=== PATIENT | female | born 1955 | race Caucasian/White ===

== ENCOUNTER 2016-07-08 10:52 | Day surgery (SDC) | payer MEDICAID ==
[2016-07-08] MEDS ORDERED: LIDOCAINE 1% 5 ML SDV ONE (11:56)
[2016-07-08] MEDS ORDERED: LIDOCAINE 1% 5 ML SDV ID PRN (12:19)
[2016-07-08] MEDS ORDERED: LR 1,000 ML IV ONE (12:19)
--- NOTE | 2016-07-08 12:35 | GHP ---
[f rep st] PREOP HISTORY AND PHYSICAL DATE OF ADMISSION: 07/08/2016 PREOPERATIVE DIAGNOSIS: Postmenopausal bleeding. HISTORY OF PRESENT ILLNESS: The patient is a 61-year-old, 0 who began having vaginal bleedin g in March of 2016. She has had persistent vaginal bleeding since that time, which ebbs and flows. She had pelvic ultrasound performed in May of 2016 which showed a uterus measuring 6 x 3.1 x 4 cm with no evidence of a myometrial mass. The endometrial stripe is thickened at 13 mm with a heter ogeneous appearance and blood flow. Right ovary is normal in appearance. The left ovary has a 1.8 s imple appearing cyst on it. The patient had an attempted endometrial biopsy performed in the office, but due to the menopausal multiparous status and a flat stenotic cervix, we were not able to do it a t that time. She was treated with Cytotec and a 2nd attempt was made, but we were not able to access the cervix. The patient was treated with additional courses of Cytotec and presents today for hyste roscopy with morcellation of endometrial tissue and endometrial biopsy. Risks and benefits of the pr ocedure have been extensively reviewed with the patient, and patient has been properly consented. MEDICAL HISTORY: Anxiety, B12 deficiency, depression, hyperlipidemia, hypertension, obesity, vitamin D insufficiency, postmenopausal bleeding. MEDICATIONS: Baby aspirin, vitamin B12, fluoxetine 20 mg a day, Losartan 25 mg a day, Omacor, simvas tatin, vitamin B, vitamin D. ALLERGIES: Tetracycline. SOCIAL HISTORY: The patient denies tobacco, alcohol or drug use. FAMILY MEDICAL HISTORY: Significant for diabetes, heart disease, and hypertension. ORDNANCE TRUCK INSTALLATION SUPERVISOR HISTORY: She has a history of regular cycles. She is a 0. Menopausal x13 years. No episodes of vaginal bleeding until March of 2016. The patient denies any history of any abnormal Pap smears or sexually transmitted diseases. PHYSICAL EXAM: VITAL SIGNS: Stable. GENERAL APPEARANCE: Alert and oriented x3. HEART: Rate is r egular, regular. LUNGS: Clear to auscultation bilaterally. ABDOMEN: Obese, soft, nondistended, no ntender. EXTREMITIES: Reveal no calf tenderness or edema. PELVIC: Reveals a mobile, small mid pos ition uterus with no adnexal masses. A very flat cervix is noted, and it is noted to be stenotic. P elvic ultrasound is described above. ASSESSMENT AND PLAN: A 61-year-old, 0 with postmenopausal bleeding and a thickened endometri um. We were not able to perform an endometrial biopsy in the office, so we will attempt an endometri al biopsy versus hysteroscopy under anesthesia today. Risks and benefits extensively have been revie wed with the patient, and the patient is properly consented. /[id number]/MODL
[2016-07-08] MEDS ORDERED: MIDAZOLAM 2 MG/2 ML VIAL ONE (13:32)
[2016-07-08] MEDS ORDERED: fentaNYL 100 MCG/2 ML INJ ONE ×3 (13:34→14:35)
[2016-07-08] MEDS ORDERED: PROPOFOL 200 MG/20 ML VIAL ONE ×2 (13:35→14:33)
[2016-07-08] MEDS ORDERED: DEXAMETHASONE 4 MG/ML VIAL ONE (13:50)
[2016-07-08] MEDS ORDERED: ONDANSETRON 4 MG/2 ML VIAL ONE (13:50)
--- NOTE | 2016-07-08 18:40 | GOP ---
[f rep st] OPERATIVE REPORT DATE OF OPERATION: 07/08/2016 SURGEON: Shira Shultz DO ANESTHESIA: General. ANESTHESIOLOGIST: Dr. Davis. PREOPERATIVE DIAGNOSIS: Postmenopausal bleeding. POSTOPERATIVE DIAGNOSIS: Postmenopausal bleeding. PROCEDURE PERFORMED: Endometrial biopsy under anesthesia and hysteroscopy with morcellation of endom etrial tissue. FINDINGS: 1. Mobile, very well suspended uterus with a very flat cervix. 2. Hysteroscopic findings: Questionable false passage versus thickened endometrial tissue. SPECIMENS: Endometrial curettings. ESTIMATED BLOOD LOSS: 20 cc. INDICATIONS: Patient is a 61-year-old, 0 who began having postmenopausal bleeding in March of 2016. She underwent an ultrasound in May of 2016 which showed a 13 mm stripe. She underwen t 2 attempted endometrial biopsies within the office which were unsuccessful. She did try Cytotec be fore the second one. She has taken 2 additional courses of Cytotec, and is being brought back to the operating room for endometrial biopsy and hysteroscopy if possible. Risks and benefits of the proce dure were reviewed with the patient and the patient was properly consented. DESCRIPTION OF PROCEDURE: Patient was taken to the operating room with intravenous fluids in place. She was then placed on the operating room table in the dorsal supine position where general anesthes ia was obtained. She was then repositioned into the dorsal lithotomy position with the Yellofin stir rups, and prepped and draped in the normal sterile fashion. Exam under anesthesia reveals a well aramis pended, very small uterus with a flat cervix. A speculum was then placed in the patient's vagina, an d a single-tooth tenaculum was used to grasp the anterior lip of the cervix. The cervical os was jennifer ntified and initial attempt was made with a Pipelle to perform an endometrial biopsy. Bright red blo od was noted with this, and this was set aside and the specimen labeled endometrial biopsy. The cerv ix was then carefully dilated to allow for the introduction of an operative hysteroscope. The hyster oscope was introduced with fluid medium running and a question of false channel versus thickened endo metrium was noted because I was unable to visualize the tubal ostia. Multiple attempts were made wit h ultrasound transvaginally and transabdominally to visualize and ensure that I was inside the endome trial canal. However, due to the small postmenopausal uterus and the patient's body habitus, it was incredibly difficult to see. During the surgery, I was called upstairs for a few minutes for an lorena gency in labor and delivery, and then did return. I did have 1 of my partners, Joanie Mcintyre assist m e with ultrasound following that, and we spent an extensive amount of time trying to identify and vis ualize the uterus and the endometrium. It appeared that we were in the endometrial canal, so once th e hysteroscope was then reintroduced, morcellation was performed of the possible endometrial tissue. This was sent in a separate container. Then, the biopsy performed with the Pipelle. Following comp letion of this, instruments were removed from the patient's vagina. She was returned to the dorsal s upine position, where she was easily awoken from anesthesia. Sponge, lap, needle counts were correct x2. Patient was transported to recovery room in stable condition. I did have a long discussion abo ut the surgical findings and difficulty finding the cervical os with the patient. We discussed if th e endometrium is not sampled, will either recommend hysterectomy or followup with gynecologic oncolog y for further evaluation. /[id number]/MODL
== END 2016-07-08 16:58 | disposition home or self-care (01) ==
LOC: FSGY 10:52
PROVIDERS: ATTEND Obstetrics & Gynecology
PROC: 0UB98ZX Excision of Uterus, Via Natural or Artificial Opening Endoscopic, Diagnostic (ICD-10-PCS; principal; 2016-07-08 12:45)
DX: N95.0 Postmenopausal bleeding (principal); R93.8 Abnormal findings on diagnostic imaging of other specified body structures; F41.9 Anxiety disorder, unspecified; E11.9 Type 2 diabetes mellitus without complications; E78.5 Hyperlipidemia, unspecified; E66.9 Obesity, unspecified
CPT/HCPCS: C1782; J1100; J2250; J2405; J2704; J3010

== ENCOUNTER 2016-08-02 06:42 | Observation (INO) | payer MEDICAID ==
[2016-07-27 09:30] LABS: % IMMATURE GRANULYOCYTES 0.2 % (0.0-1.1); ABSOLUTE IMMATURE GRANULOCYTES 0.01 10^3/uL (0.00-0.10); ADD DIFF? NO; ADD MORPH? NO; ADD SCAN? NO; ATYPICAL LYMPHOCYTE FLAG 10 (0-99); FRAGMENT RBC FLAG 0 (0-99); HEMATOCRIT 42.6 % (38.0-47.0); HEMOGLOBIN 14.1 g/dL (12.6-16.3); LEFT SHIFT FLG 0 (0-99); LIPEMIA HEMOLYSIS FLAG 80 (0-99); MEAN CELL HEMOGLOBIN 30.4 pg (27.9-34.1); MEAN CELL HEMOGLOBIN CONCENTR. 33.1 g/dL (32.4-36.7); MEAN CELL VOLUME 91.8 fL (81.5-99.8); MEAN PLATELET VOLUME 9.3 fL (8.7-11.7); PLATELET CLUMPS FLAG 0 (0-99); PLATELET COUNT 282 10^3/uL (150-400); RED BLOOD CELL COUNT 4.64 10^6/uL (4.18-5.33); RED CELL DISTRIBUTION WIDTH 14.3 % (11.5-15.2)
--- NOTE | 2016-08-01 18:01 | GHP ---
[f rep st] PREOP HISTORY AND PHYSICAL DATE OF ADMISSION: 08/02/2016 PLANNED PROCEDURE: 08/02/2016. Planned procedure is total laparoscopic hysterectomy with bilateral salpingectomy. INDICATIONS: Patient is a 61-year-old, 0, who began having vaginal bleeding in March. She has had persistent vaginal bleeding since that time, which increases and decreases. She i s not on any hormone replacement, and has never been on. The patient had a pelvic ultrasound perfor med in May of 2016, which showed the uterus measuring 6 x 3.1 x 4 cm, with no evidence of a kyree metrial mass. The endometrial stripe was thickened at 13 mm, with a heterogeneous appearance and bl ood flow. She had a simple cyst on her left ovary, and an unremarkable right ovary. We attempted a n endometrial biopsy in the office, but due to her menopausal and nulliparous status, and a flat giselle notic cervix, we were not able to do it at that time. She underwent a hysteroscopy with morcellatio n of endometrial tissue in June of 2016, which showed benign endometrial tissue. The patient has had persistent vaginal bleeding since that time. She was given Aygestin, which did decrease her bl eeding temporarily, but it has resumed. We have had a long discussion about management options, and the patient is electing to proceed with a total laparoscopic hysterectomy with bilateral salpingect stan. We have had extensive discussions about the possibility of uterine cancer being present, despi te a normal biopsy. The patient is agreeable with plan, and wishes to proceed. Risks and benefits of the procedure have been extensively reviewed with the patient, and the patient has been properly consented. MEDICAL HISTORY: Anxiety, B12 deficiency, depression, hyperlipidemia, hypertension, obesity, vitami n D deficiency, postmenopausal bleeding. MEDICATIONS: Baby aspirin, vitamin B12, fluoxetine 20 mg a day, losartan 25 mg a day, Omacor, simva statin, vitamin B and vitamin D. ALLERGIES: Tetracycline causes a rash. SOCIAL HISTORY: Patient denies tobacco, alcohol, or drug use. She is . FAMILY MEDICAL HISTORY: Diabetes, heart disease, and hypertension. OBSTETRICAL/GYNECOLOGIC HISTORY: She had regular cycles until menopause. She is a 0. She has been menopausal for 13 years. She has not had any episodes of vaginal bleeding until March of 2016. She has not been on any hormone replacement. She denies any history of any abnormal Pap sme ars or sexually transmitted diseases. PHYSICAL EXAM: VITAL SIGNS: Stable. GENERAL APPEARANCE: Alert and oriented x3. CARDIOVASCULAR: Her heart rate is regular, regular. LUNGS: Clear to auscultation bilaterally. ABDOMEN: Obese, s oft, nondistended, nontender. EXTREMITIES: Reveal no calf tenderness or edema. PELVIC: Reveals a mobile, small, midposition uterus, with no adnexal masses, and a very flat cervix is noted that was stenotic. IMAGING: Pelvic ultrasound is described above. ASSESSMENT AND PLAN: A 61-year-old, 0, who is postmenopausal, with persistent postmenopausa l bleeding and thickened endometrium. She will undergo a total laparoscopic hysterectomy with bilat eral salpingectomy. Risks and benefits have been extensively reviewed with the patient, and the pat ient has been properly consented. /[id number]/MODL
[~2016-08-02 06:42] MED LIST: ceFAZolin 2 GM/DEXTROSE 100 ML IV ONE
[2016-08-02] MEDS ORDERED: LIDOCAINE 1% 5 ML SDV ONE (07:22)
[2016-08-02] MEDS ORDERED: fentaNYL 100 MCG/2 ML INJ ONE ×3 (07:42→11:55)
[2016-08-02] MEDS ORDERED: PROPOFOL 200 MG/20 ML VIAL ONE ×2 (07:43)
[2016-08-02] MEDS ORDERED: LIDOCAINE 2% 100 MG/5 ML SYR IVP ONE (07:46)
[2016-08-02] MEDS ORDERED: ROCURONIUM 50 MG/5 ML VIAL ONE ×2 (07:46→08:44)
[2016-08-02] MEDS ORDERED: DEXAMETHASONE 4 MG/ML VIAL ONE (07:48)
[2016-08-02] MEDS ORDERED: ONDANSETRON 4 MG/2 ML VIAL ONE (07:48)
[2016-08-02] MEDS ORDERED: MIDAZOLAM 2 MG/2 ML VIAL ONE (08:03)
[2016-08-02] MEDS ORDERED: BUPIVACAINE 0.5% 30 ML SDV ONE (08:38)
[2016-08-02] MEDS ORDERED: SUGAMMADEX SODIUM 200 MG/2 ML VIAL IVP ONE (09:04)
[2016-08-02] MEDS ORDERED: METHYLENE BLUE 0.5% 50 MG/10 ML AMP ONE (10:28)
[2016-08-02] MEDS ORDERED: KETOROLAC 15 MG/1 ML SDV IVP ONE (12:05)
[2016-08-02] MEDS ORDERED: KETOROLAC 15 MG/1 ML SDV ONE (12:06)
[2016-08-02] MEDS ORDERED: HYDROmorphONE/DILAUDID 1 MG/ML SYR ONE (12:33)
[2016-08-02] MEDS: HYDROCODONE/APAP 5/325 TAB PO PRN ×3 (16:51→23:39)
[2016-08-02] MEDS ORDERED: ATORVASTATIN CALCIUM 10 MG TAB PO SCH (21:00)
[2016-08-02] MEDS ORDERED: NON-FORMULARY NEW DRUG (Simvastatin [Zocor] 20 MG) PO SCH (21:00)
[2016-08-03] MEDS: HYDROCODONE/APAP 5/325 TAB PO PRN ×3 (04:37→12:16)
[2016-08-03 06:53] LABS: HEMATOCRIT 34.6 % (38.0-47.0); HEMOGLOBIN 11.6 g/dL (12.6-16.3)
[2016-08-03 07:53] VITALS: BP 131/76; PULSE 75; RESP 14; TEMP 99.1; O2SAT 99
--- NOTE | 2016-08-03 08:25 | POSTOPPROG ---
Post Op Note Date of Operation: 08/02/16 Surgeon: Shira Shultz Basketball Commentator: jillian oseguera Anesthesiologist: catie wnog Anesthesia: GET(General Endotracheal) Pre-op Diagnosis: post menopausal bleeding Post-op Diagnosis: post menopausal bleeding Procedure: total laparoscopic hysterectomy with bilateral salpingoophrectomy Inf/Abcess present in the surg proc area at time of surgery?: No Depth: Organ Space EBL: 50-100 Specimen(s): uterus, bilateral ovaries and tubes
--- NOTE | 2016-08-03 08:31 | SOAPPROG ---
SOAP Progress Note Assessment/Plan: Assessment: pod# 1 s/p TLH BSO for post menopausal bleeding uncomplicated post operative course Plan: discharge instructions damien santoyo 08/03/16 08:25 Subjective: patient is doing well. pain is well controlled. tolerating diet. ambulating. passing gas. parra just removed. hasnt voided yet. ambulating. ready to go home. Objective: Vital Signs Temp Pulse Resp BP Pulse Ox 37.3 C 75 14 131/76 H 99 08/03/16 07:51 08/03/16 07:51 08/03/16 07:51 08/03/16 08:00 08/03/16 07:51 Laboratory Results 08/03/16 05:55 08/02/16 08/03/16 08/04/16 05:59 05:59 05:59 Intake Total 2660 Output Total 1445 Balance 1215 Physical Exam - Physical Exam General Appearance: WD/WN, alert, no apparent distress Respiratory: chest non-tender, lungs clear, normal breath sounds Cardiac/Chest: normal peripheral pulses, regular rate, rhythm Abdomen: normal bowel sounds, non-tender, soft, other (incisions well healed) Skin: normal color, warm/dry Extremities: normal range of motion, non-tender, normal inspection, normal capillary refill Neuro/Psych: no motor/sensory deficits, alert, normal mood/affect, oriented x 3 ICD10 Worksheet Patient Problems: Problems Problem Status Onset Post-menopausal bleeding Acute
[2016-08-03] MEDS ORDERED: FLUoxetine 20 MG CAP PO SCH (09:00)
[2016-08-03] MEDS ORDERED: LOSARTAN POTASSIUM 25 MG TAB PO SCH (09:00)
[2016-08-03] MEDS ORDERED: IBUPROFEN 600 MG TAB PO SCH (12:01)
--- NOTE | 2016-08-03 18:13 | GDS ---
ADMISSION DIAGNOSIS: Postmenopausal bleeding. DISCHARGE DIAGNOSIS: Postmenopausal bleeding, resolved, status post total laparoscopic hysterectomy with bilateral salpingo-oophorectomy. HOSPITAL COURSE: The patient is a 61-year-old, 0, who had several-month history of postmeno pausal bleeding. She had an endometrial biopsy, which was benign, and management options were revie wed with the patient. The patient elected to proceed with a total laparoscopic hysterectomy with bi lateral salpingo-oophorectomy. Patient underwent that surgery on 08/02. Surgery was uncomplicated, and the patient had an unremarkable postoperative course. Her Dhillon catheter came out on the morni ng of 08/03. Her pain was well controlled with oral pain medicine, and the patient was discharged t o home on postoperative day #1, with a prescription for Joppa. Patient has ibuprofen at home that s he will take as needed as well. The patient was instructed to have nothing in the vagina for the ne xt [address] for the next week. Patient does have a family history of blood clots, s o she will wear compression stockings for the next couple weeks, including on her flight to [facility] several weeks. Bleeding precautions were reviewed with the patient. Patient is to follow up in o ur office in 2 weeks and in 6 weeks for postoperative visits. /[id number]/MODL
--- NOTE | 2016-08-03 18:53 | GOP ---
DATE OF OPERATION: 08/02/2016 SURGEON: Shira Shultz DO MOBILE TESTER: Ivory Rodríguez MD ANESTHESIA: General endotracheal tube. ANESTHESIOLOGIST: Andrew Orellana MD. PREOPERATIVE DIAGNOSIS: Postmenopausal bleeding. POSTOPERATIVE DIAGNOSIS: Postmenopausal bleeding. PROCEDURE PERFORMED: Total laparoscopic hysterectomy with bilateral salpingo- oophorectomy. FINDINGS: 1. Mobile, well suspended small uterus with flat cervix. No adnexal masses. 2. Laparoscopic findings: Diverticulosis noted on the bowel with adhesions on the right colon to the right pelvic sidewall. Adhesions are small. Mobile uterus with not well-developed lower uterine segment. Normal right ovary and tube. The left paratubal cyst and adhesion of the left ovary to the lower pelvic side wall. SPECIMENS: Ovaries, uterus, and tubes. ESTIMATED BLOOD LOSS: 50 mL. INDICATIONS: The patient is a 61-year-old 0 who began having vaginal bleeding in March of 2016. She has had persistent vaginal bleeding since that time, which increases and decreases. The patient has never been on any hormone replacement. She had a pelvic ultrasound performed in May of 2016 which showed a uterus measuring 6 x 3.1 x 6 cm with no evidence of a myometrial mass. The endometrial stripe was thickened at 13 mm with homogeneous appearance. The patient had a simple cyst on her left ovary and an unremarkable right ovary. We attempted an endometrial biopsy in the office but due to her menopausal nulliparous status and a flat stenotic cervix, we were not able to do it at that time. She underwent a hysteroscopy with morcellation of endometrial tissue in June of 2015 which showed benign endometrial tissue. The patient has had persistent vaginal bleeding. At that time, she was given Aygestin which temporarily decreased her bleeding but has returned. We had a long discussion about management options and the patient elected to proceed with a total laparoscopic hysterectomy and bilateral salpingo- oophorectomy. Risks and benefits of the procedure were reviewed extensively with the patient and the patient was properly consented. DESCRIPTION OF PROCEDURE: Patient was taken to the operating room with intravenous fluids in place. She was given 2 g of Ancef intravenously. She was then placed on the operating room table in the dorsal supine position where general anesthesia was obtained. She was then repositioned into the dorsal lithotomy position with the Yellofin stirrups and prepped and draped in normal sterile fashion. Exam under anesthesia revealed a tight stenotic postmenopausal introitus with a tight hymenal ring because of her nulliparous status and a flat, well-suspended cervix and mobile uterus. Because of the well -suspended nature of the cervix and a history of a stenotic cervix, decision was made to proceed abdominally first to ensure no immediately recognized perforation of the uterus if that happened. The patient laid flat and a 5 mm skin incision was made in the patient's abdomen after injection with Marcaine and a 5 mm laparoscope was then placed into the patient's abdomen under direct visualization. The abdomen was then insufflated with CO2 gas until an adequate pneumoperitoneum was achieved. The area underneath the trocar insertion site was explored and found to be unremarkable. Some abdominal adhesions were noted and the colon was noted to have diverticulosis. A 5 mm skin incision was then placed in the patient's right lower quadrant and a 5 mm trocar was then advanced into the patient's abdomen under direct visual visualization. A 10 mm incision was then made in the patient's left lower quadrant and the trocar was advanced into the patient' s abdomen under direct visualization. The bowel was then mobilized with a blunt probe and the uterus was elevated up with a blunt probe. It was noted to be small and mobile. A speculum was then placed in the patient's vagina. Her introitus was noted to be postmenopausal with a tight hymenal ring. The cervix was noted to be flat and the os deviated off to the patient's side. A single- tooth tenaculum was used to grasp the anterior lip of the cervix and the uterus sounded to 6 cm. The GOOD was assembled with the small yellow uterine manipulator tip and the small GOOD cervical cup. The GOOD was then introduced through the cervix and the balloon was inflated and the uterus was able to be manipulated without difficulty. Attention was then turned again to the patient's abdomen. The right ureter was noted to be peristalsing. The left ureter was not able to be visualized because of the colon. The right fallopian tube was then grasped and tented up and the right infundibulopelvic ligament was then clamped, cauterized, and transected with the Harmonic scalpel. A right salpingectomy and oophorectomy was performed without difficulty. This specimen was then placed posterior to the uterus in the posterior cul-de-sac. The right round ligament was clamped, cauterized, and transected. The broad ligament was clamped, cauterized, and transected. The bladder flap was created anteriorly and the uterine arteries were skeletonized, clamped, cauterized, and transected with the Harmonic scalpel. Attention was then turned to the left side. Because the left fallopian tube and ovary were attached to the left pelvic sidewall, a decision was made to clamp, cauterize, and transect the fallopian tube and round ligaments and then the broad ligament with the Harmonic scalpel. The uterine arteries were then skeletonized and a bladder flap was created anteriorly. Bladder was dissected off the lower uterine segment and the colpotomy ring was easily palpated through the tissue. A colpotomy was performed with the Harmonic scalpel without difficulty and the uterus was then removed through the vagina and left in the vagina to work as a pneumo-occluder. Attention was then turned to the left fallopian tube which was then grasped and tented up and dissected from the infundibulopelvic ligament and the left ovary was dissected off the pelvic sidewall and the vaginal cuff. These 2 specimens and the ovary and tube from the posterior cul-de-sac were replaced in the vagina and then were grasped and a sponge and a glove was placed in the patient's vagina. Hemostasis was assured on all the pedicles. The vaginal cuff remained hemostatic. A V-Loc barbed suture was then inserted through the 10 mm trocar and the vaginal cuff was closed in a running fashion with the V-Loc suture. When we got to the midpoint of the vaginal cuff, the needle for the V-Loc suture broke in half and the remaining piece of the suture was visualized and grasped and withdrawn through the trocar. A 2nd needle was loaded and we closed the vaginal cuff from the other side. When we got to the midportion of the uterus, the needle for the V-Loc suture broke again with half of the suture being left in the handpiece and the other half in the vaginal cuff. We copiously irrigated the vaginal cuff, explored the vaginal cuff vaginally to see if there was any way to identify the needle. We extensively explored the vaginal cuff. Decision was made, because it was a 2 mm piece of needle that was deeply embedded within the vaginal cuff, the risks of complications of opening up the suture line and excising more of the vaginal cuff with hopes of finding the needle outweigh the risks of performing that versus the benefits of leaving the needle imbedded in the vaginal cuff were greater. Decision was made to leave the vaginal cuff is intact. Vaginal cuff was well approximated with the V-Loc suture. The pelvis was copiously irrigated and hemostatic. Pelvic sidewalls were, again , hemostatic. The right ureter was noted to be peristalsing. The left one was not able to be identified because of the colon, so a cystoscopy was performed. Patient was given indigo carmine and cystoscopy, again, was performed by Dr. Rodríguez which showed bilateral ureteral jets noted. Following completion of the cystoscopy, the 1 cm fascial defect was closed with an 0 Vicryl suture with the fascial closure device. CO2 gas was expressed from the other trocars and the trocars were removed and the skin was then closed with 4-0 Monocryl. The sponge, lap, and needle counts were correct x2. Patient was returned to the dorsal supine position where she was easily awoken from anesthesia. The patient was transferred to recovery room in stable condition. /[id number]/MODL MTDD
== END 2016-08-03 12:50 | disposition home or self-care (01) ==
LOC: F3E 06:42 → FOB 13:16
PROVIDERS: ADMIT Obstetrics & Gynecology; ATTEND Obstetrics & Gynecology
PROC: 0UT94ZZ Resection of Uterus, Percutaneous Endoscopic Approach (ICD-10-PCS; principal; 2016-08-02 08:15)
PROC: 0TJ98ZZ Inspection of Ureter, Via Natural or Artificial Opening Endoscopic (ICD-10-PCS; principal; 2016-08-02 08:15)
PROC: 0UT24ZZ Resection of Bilateral Ovaries, Percutaneous Endoscopic Approach (ICD-10-PCS; principal; 2016-08-02 08:15)
PROC: 0UTC4ZZ Resection of Cervix, Percutaneous Endoscopic Approach (ICD-10-PCS; principal; 2016-08-02 08:15)
PROC: 0UT74ZZ Resection of Bilateral Fallopian Tubes, Percutaneous Endoscopic Approach (ICD-10-PCS; principal; 2016-08-02 08:15)
DX: N95.0 Postmenopausal bleeding (principal); D25.2 Subserosal leiomyoma of uterus; D39.10 Neoplasm of uncertain behavior of unspecified ovary; T81.590A Other complications of foreign body accidentally left in body following surgical operation, initial encounter
CPT/HCPCS: 58571; G0378; J0690; J1100; J1170; J1885; J2001; J2250; J2405; J2704; J3010; Q9968

== ENCOUNTER → 2017-06-09 | Outpatient (CLI) | payer MEDICAID | LOC: FIMAGING 09:00 | PROVIDERS: ATTEND Obstetrics & Gynecology | DX: Z12.31 Encounter for screening mammogram for malignant neoplasm of breast (principal); Z85.43 Personal history of malignant neoplasm of ovary | CPT/HCPCS: G0202 ==

== ENCOUNTER → 2018-07-31 | Outpatient (CLI) | payer OTHER | LOC: FIMAGING 09:57 | PROVIDERS: ATTEND Family Medicine | DX: Z12.31 Encounter for screening mammogram for malignant neoplasm of breast (principal); Z80.3 Family history of malignant neoplasm of breast ==